=== PATIENT | male | born 1955 | race Caucasian/White ===

== ENCOUNTER 2023-12-18 16:18 | Inpatient (IN) | payer OTHER ==
[~2023-12-18] VITALS: Ht 152.4 cm; Wt 73.5 kg
[2023-12-18] MEDS: MORPHINE SULFATE 4 MG/ML INJ (FOR IV/IM USE) IV ONE (17:00)
[2023-12-18 19:05] LABS: BASOPHILS % 0.9 % (0.0-2.0); EOSINOPHILS % 3.4 % (0.0-5.0); HEMATOCRIT. 39.8 % (42.0-52.0); HEMOGLOBIN. 13.3 g/dL (14.0-18.0); LYMPHOCYTES % 19.8 % (20.0-50.0); MEAN CORPUSCULAR HEMOGLOBIN 30.9 pg (28.0-32.0); MEAN CORPUSCULAR HGB CONC 33.3 g/dL (31.0-37.0); MEAN CORPUSCULAR VOLUME 92.8 fL (80.0-94.0); MEAN PLATELET VOLUME 7.8 fl (7.4-10.4); NEUTROPHILS % 67.9 % (40.0-76.0); PLATELET 276 x1000/uL (130-400); RED BLOOD CELL COUNT 4.29 mill/uL (4.7-6.1); RED CELL DISTRIBUTION WIDTH 17.5 % (11.6-14.6); WHITE BLOOD COUNT 7.3 x1000/uL (4.5-11.0)
[2023-12-18 19:15] LABS: PROTHROMBIN TIME 11.1 sec (9.6-11.0)
[2023-12-18 19:20] LABS: ALANINE AMINOTRANSFERASE 9 IU/L (10-49); ALBUMIN 4.9 g/dL (3.2-4.8); ASPARTATE AMINOTRANSFERASE 14 IU/L (<34); BILIRUBIN TOTAL 0.4 mg/dL (0.1-1.0); CALCIUM 9.1 mg/dL (8.7-10.4); CARBON DIOXIDE 27 mEq/L (21-32); CHLORIDE 107 mEq/L (98-107); CREATININE 1.2 mg/dL (0.6-1.3); GLUCOSE 89 mg/dL (70-105); POTASSIUM 3.9 mEq/L (3.5-5.1); PROTEIN TOTAL 8.2 g/dL (6.0-8.3); SODIUM 140 mEq/L (136-145); UREA NITROGEN BLOOD 16 mg/dL (9-23)
[2023-12-18 19:22] LABS: TROPONIN I HIGH SENSITIVITY < 4 ng/L (3.0-53)
[2023-12-18] MEDS ORDERED: METRONIDAZOLE 500 MG PREMIX 100 ML IV NR (21:00)
[2023-12-18 21:47] LABS: TROPONIN I HIGH SENSITIVITY < 4 ng/L (3.0-53)
[2023-12-18] MEDS ORDERED: PIPERACILLIN/TAZO 3.375G/50ML 50 ML IV SCH (22:00)
[2023-12-18] MEDS ORDERED: NA PHOS,M-B/NA PHOS,DI-BA ENEMA 118ML PR PRN (23:00)
[2023-12-18] MEDS ORDERED: ACETAMINOPHEN 325MG TABLET PO PRN (23:00)
[2023-12-18] MEDS ORDERED: DOCUSATE SODIUM 100MG CAPSULE PO PRN (23:00)
[2023-12-18] MEDS ORDERED: MAGNESIUM/ALUMINUM HYDROXIDE/SIMETHICONE 30ML UDC PO PRN (23:00)
[2023-12-18] MEDS ORDERED: IPRATROPIUM/ALBUTEROL 0.5-3(2.5)MG/3ML NEB HHN PRN (23:00)
[2023-12-18] MEDS ORDERED: GUAIFENESIN 200MG/10ML SUGAR FREE UDC PO PRN (23:00)
[2023-12-18] MEDS ORDERED: DEXTROSE 50% WATER 50ML SYRINGE IV PRN (23:00)
[2023-12-18] MEDS: PIPERACILLIN/TAZO 3.375G/50ML 50 ML IV SCH (23:15)
[2023-12-19] MEDS: METRONIDAZOLE 500 MG PREMIX 100 ML IV NR (01:14)
[2023-12-19 05:10] LABS: BASOPHILS % 0.8 % (0.0-2.0); EOSINOPHILS % 4.5 % (0.0-5.0); HEMATOCRIT. 34.2 % (42.0-52.0); HEMOGLOBIN. 11.1 g/dL (14.0-18.0); LYMPHOCYTES % 23.9 % (20.0-50.0); MEAN CORPUSCULAR HEMOGLOBIN 30.5 pg (28.0-32.0); MEAN CORPUSCULAR HGB CONC 32.4 g/dL (31.0-37.0); MEAN CORPUSCULAR VOLUME 94.1 fL (80.0-94.0); MEAN PLATELET VOLUME 7.9 fl (7.4-10.4); MONOCYTES % 9.6 % (2.0-8.0); NEUTROPHILS % 61.2 % (40.0-76.0); PLATELET 247 x1000/uL (130-400); RED BLOOD CELL COUNT 3.63 mill/uL (4.7-6.1); RED CELL DISTRIBUTION WIDTH 17.2 % (11.6-14.6); WHITE BLOOD COUNT 5.8 x1000/uL (4.5-11.0)
[2023-12-19 05:30] LABS: ALANINE AMINOTRANSFERASE 8 IU/L (10-49); ALBUMIN 4.2 g/dL (3.2-4.8); ASPARTATE AMINOTRANSFERASE 12 IU/L (<34); BILIRUBIN TOTAL 0.7 mg/dL (0.1-1.0); CALCIUM 8.7 mg/dL (8.7-10.4); CARBON DIOXIDE 23 mEq/L (21-32); CHLORIDE 109 mEq/L (98-107); CHOLESTEROL 134 mg/dL (<200); CREATININE 1.1 mg/dL (0.6-1.3); GLUCOSE 91 mg/dL (70-105); HDL CHOLESTEROL 29 mg/dL (>55); LDL CHOLESTEROL 86 mg/dL (5-100); POTASSIUM 3.6 mEq/L (3.5-5.1); PROTEIN TOTAL 7.4 g/dL (6.0-8.3); SODIUM 140 mEq/L (136-145); TRIGLYCERIDE 122 mg/dL (0-150); UREA NITROGEN BLOOD 11 mg/dL (9-23)
[2023-12-19] MEDS: LORAZEPAM 0.5MG TABLET PO PRN (06:26)
[2023-12-19] MEDS: INSULIN LISPRO 100 UNITS/ML SUBCUT SCH (08:20)
[2023-12-19] MEDS: BLOOD SUGAR DIAGNOSTIC STRIP TEST SCH (09:00)
[2023-12-19] MEDS: FAMOTIDINE 20MG TABLET PO SCH (11:57)
[2023-12-19] MEDS: LOSARTAN 25 MG TABLET PO SCH (11:57)
[2023-12-19] MEDS: ENOXAPARIN 40MG/0.4ML SYR SUBCUT SCH (11:58)
[2023-12-19 12:00] VITALS: BP 148/92; PULSE 60; RESP 18; TEMP 97.4
[2023-12-19 12:05] VITALS: BP 139/92; PULSE 73; RESP 16; TEMP 97.8
[2023-12-19] MEDS ORDERED: DIATR MEGLU/DIATRIZOATE SOLN 30ML PO SCH (14:45)
[2023-12-19 16:00] VITALS: BP 141/99; PULSE 67; RESP 18; TEMP 97.8
[2023-12-19 16:11] LABS: HEMATOCRIT 38.9 % (42.0-52.0)
[2023-12-19 20:50] VITALS: BP 142/78; PULSE 80; RESP 20; TEMP 98
[2023-12-20] VITALS: BP 134/69; PULSE 64; RESP 18; TEMP 98
[2023-12-20 04:15] VITALS: BP 132/68; PULSE 62; RESP 16; TEMP 98.1
[2023-12-20 07:27] LABS: CALCIUM 8.7 mg/dL (8.7-10.4); CARBON DIOXIDE 25 mEq/L (21-32); CHLORIDE 109 mEq/L (98-107); CREATININE 1.3 mg/dL (0.6-1.3); GLUCOSE 86 mg/dL (70-105); PHOSPHORUS 2.5 mg/dL (2.5-4.9); POTASSIUM 3.7 mEq/L (3.5-5.1); SODIUM 138 mEq/L (136-145); UREA NITROGEN BLOOD 11 mg/dL (9-23)
[2023-12-20 08:00] VITALS: BP 140/94; PULSE 66; RESP 18; TEMP 97.9
[2023-12-20 08:21] LABS: BASOPHILS % 0.9 % (0.0-2.0); EOSINOPHILS % 4.1 % (0.0-5.0); HEMATOCRIT. 35.2 % (42.0-52.0); HEMOGLOBIN. 11.9 g/dL (14.0-18.0); LYMPHOCYTES % 19.3 % (20.0-50.0); MEAN CORPUSCULAR HEMOGLOBIN 30.9 pg (28.0-32.0); MEAN CORPUSCULAR HGB CONC 33.7 g/dL (31.0-37.0); MEAN CORPUSCULAR VOLUME 91.5 fL (80.0-94.0); MONOCYTES % 8.1 % (2.0-8.0); NEUTROPHILS % 67.6 % (40.0-76.0); PLATELET 247 x1000/uL (130-400); RED BLOOD CELL COUNT 3.84 mill/uL (4.7-6.1); RED CELL DISTRIBUTION WIDTH 17.3 % (11.6-14.6); WHITE BLOOD COUNT 5.4 x1000/uL (4.5-11.0)
[2023-12-20 12:00] VITALS: BP 145/89; PULSE 68; RESP 18; TEMP 97.4
[2023-12-20] MEDS ORDERED: IOHEXOL-300 100 ML BOTTLE ONE (14:42)
[2023-12-20] MEDS ORDERED: DIATR MEGLU/DIATRIZOATE SOLN 120ML ONE (14:43)
[2023-12-20 16:00] VITALS: BP 127/81; PULSE 75; RESP 18; TEMP 97
[2023-12-20 20:00] VITALS: BP 116/83; PULSE 86; RESP 18; TEMP 97.5
[2023-12-21] VITALS: BP 101/60; PULSE 76; RESP 18; TEMP 97.9
[2023-12-21 04:00] VITALS: BP 114/76; PULSE 76; RESP 20; TEMP 99
[2023-12-21 06:50] LABS: BASOPHILS % 0.9 % (0.0-2.0); EOSINOPHILS % 2.4 % (0.0-5.0); HEMATOCRIT. 34.1 % (42.0-52.0); HEMOGLOBIN. 11.7 g/dL (14.0-18.0); LYMPHOCYTES % 19.6 % (20.0-50.0); MEAN CORPUSCULAR HGB CONC 34.3 g/dL (31.0-37.0); MEAN CORPUSCULAR VOLUME 90.3 fL (80.0-94.0); MEAN PLATELET VOLUME 7.7 fl (7.4-10.4); MONOCYTES % 8.8 % (2.0-8.0); NEUTROPHILS % 68.3 % (40.0-76.0); PLATELET 250 x1000/uL (130-400); RED BLOOD CELL COUNT 3.78 mill/uL (4.7-6.1); RED CELL DISTRIBUTION WIDTH 17.1 % (11.6-14.6)
[2023-12-21 07:09] LABS: ALANINE AMINOTRANSFERASE < 7 IU/L (10-49); ALBUMIN 4.1 g/dL (3.2-4.8); ASPARTATE AMINOTRANSFERASE 10 IU/L (<34); BILIRUBIN TOTAL 0.4 mg/dL (0.1-1.0); CALCIUM 8.7 mg/dL (8.7-10.4); CARBON DIOXIDE 24 mEq/L (21-32); CHLORIDE 106 mEq/L (98-107); CREATININE 1.6 mg/dL (0.6-1.3); GLUCOSE 121 mg/dL (70-105); POTASSIUM 3.7 mEq/L (3.5-5.1); SODIUM 139 mEq/L (136-145); UREA NITROGEN BLOOD 17 mg/dL (9-23)
[2023-12-21 08:00] VITALS: BP 122/95; PULSE 75; RESP 17; TEMP 97.5
[2023-12-21] MEDS: FAMOTIDINE 20MG TABLET PO SCH (09:49)
[2023-12-21 12:00] VITALS: BP 127/84; PULSE 74; RESP 18; TEMP 97.1
[2023-12-21 16:00] VITALS: BP 130/74; PULSE 87; RESP 19; TEMP 97.4
[2023-12-21 20:00] VITALS: BP 126/77; PULSE 69; RESP 20; TEMP 98
[2023-12-21] MEDS: QUETIAPINE FUMARATE 25MG TABLET PO SCH (21:00)
[2023-12-22] VITALS: BP 116/71; PULSE 66; RESP 18; TEMP 97.7
[2023-12-22 04:00] VITALS: BP 108/61; PULSE 61; RESP 19; TEMP 97.8
[2023-12-22 07:17] LABS: CARBON DIOXIDE 26 mEq/L (21-32); CHLORIDE 108 mEq/L (98-107); CREATININE 1.4 mg/dL (0.6-1.3); GLUCOSE 91 mg/dL (70-105); PHOSPHORUS 2.5 mg/dL (2.5-4.9); POTASSIUM 3.9 mEq/L (3.5-5.1); SODIUM 139 mEq/L (136-145); UREA NITROGEN BLOOD 11 mg/dL (9-23)
[2023-12-22 08:00] VITALS: BP 154/90; PULSE 68; RESP 18; TEMP 97.5
[2023-12-22 12:00] VITALS: BP 146/96; PULSE 68; RESP 18; TEMP 97.1
[2023-12-22] MEDS: ACETAMINOPHEN 325MG TABLET PO PRN (12:33)
[2023-12-22 16:00] VITALS: BP 146/97; PULSE 64; RESP 18; TEMP 96.6
[2023-12-22 20:00] VITALS: BP 131/84; PULSE 70; RESP 19; TEMP 97.9
[2023-12-23] VITALS: BP 123/85; PULSE 55; RESP 18; TEMP 97.9
[2023-12-23 04:00] VITALS: BP 155/94; PULSE 56; RESP 19; TEMP 97.3
[2023-12-23 07:10] LABS: CALCIUM 8.7 mg/dL (8.7-10.4); CARBON DIOXIDE 25 mEq/L (21-32); CHLORIDE 107 mEq/L (98-107); CREATININE 1.2 mg/dL (0.6-1.3); GLUCOSE 90 mg/dL (70-105); PHOSPHORUS 2.9 mg/dL (2.5-4.9); SODIUM 140 mEq/L (136-145); UREA NITROGEN BLOOD 9 mg/dL (9-23)
[2023-12-23 08:00] VITALS: BP 149/85; PULSE 74; RESP 18; TEMP 97.1
[2023-12-23 12:00] VITALS: BP 142/95; PULSE 65; RESP 18; TEMP 97.2
[2023-12-23 16:00] VITALS: BP 162/104; PULSE 72; RESP 18; TEMP 97.5
[2023-12-23] MEDS: CLONIDINE 0.1MG TABLET PO PRN (16:51)
[2023-12-23 20:00] VITALS: BP 118/79; PULSE 90; RESP 18; TEMP 97.1
[2023-12-24 08:00] VITALS: BP 148/95; PULSE 62; RESP 20; TEMP 98.2
[2023-12-24 12:00] VITALS: BP 137/72; PULSE 64; RESP 20; TEMP 98.2
[2023-12-24 16:00] VITALS: BP 141/70; PULSE 69; RESP 21; TEMP 98.4
[2023-12-24 20:00] VITALS: BP 124/84; PULSE 71; RESP 18; TEMP 96.7
[2023-12-25] VITALS: BP 119/82; PULSE 68; RESP 18; TEMP 97.9
[2023-12-25 04:00] VITALS: BP 124/89; PULSE 78; RESP 18; TEMP 98.7
[2023-12-25 07:54] LABS: BASOPHILS % 0.6 % (0.0-2.0); EOSINOPHILS % 2.3 % (0.0-5.0); HEMATOCRIT. 38.1 % (42.0-52.0); HEMOGLOBIN. 12.7 g/dL (14.0-18.0); LYMPHOCYTES % 25.3 % (20.0-50.0); MEAN CORPUSCULAR HEMOGLOBIN 30.8 pg (28.0-32.0); MEAN CORPUSCULAR HGB CONC 33.3 g/dL (31.0-37.0); MEAN CORPUSCULAR VOLUME 92.4 fL (80.0-94.0); MEAN PLATELET VOLUME 7.5 fl (7.4-10.4); MONOCYTES % 6.8 % (2.0-8.0); PLATELET 213 x1000/uL (130-400); RED BLOOD CELL COUNT 4.13 mill/uL (4.7-6.1); RED CELL DISTRIBUTION WIDTH 17.3 % (11.6-14.6); WHITE BLOOD COUNT 6.9 x1000/uL (4.5-11.0)
[2023-12-25 08:00] VITALS: BP 127/65; PULSE 90; RESP 20; TEMP 97.2
[2023-12-25 08:47] LABS: CALCIUM 9.2 mg/dL (8.7-10.4); CREATININE 1.3 mg/dL (0.6-1.3); POTASSIUM 4.8 mEq/L (3.5-5.1)
[2023-12-25 12:00] VITALS: BP 130/70; PULSE 91; RESP 20; TEMP 98.2
[2023-12-25 16:00] VITALS: BP 128/70; PULSE 80; RESP 20; TEMP 98.2
[2023-12-25 20:00] VITALS: BP 121/89; PULSE 72; RESP 19; TEMP 97.6
[2023-12-26] VITALS: BP 118/90; PULSE 78; RESP 19; TEMP 98.7
[2023-12-26 04:00] VITALS: BP 122/88; PULSE 82; RESP 19; TEMP 97.7
[2023-12-26 08:00] VITALS: BP 126/73; PULSE 70; RESP 20; TEMP 97.2
[2023-12-26 12:00] VITALS: BP 143/97; PULSE 69; RESP 18; TEMP 96.8
[2023-12-26 16:00] VITALS: BP 115/85; PULSE 77; RESP 20; TEMP 97.8
[2023-12-26 20:00] VITALS: BP 110/70; PULSE 70; RESP 18; TEMP 98
[2023-12-27] VITALS: BP 105/72; PULSE 69; RESP 18; TEMP 98
[2023-12-27 04:00] VITALS: BP 124/83; PULSE 68; RESP 18; TEMP 98.2
[2023-12-27 08:00] VITALS: BP 133/83; PULSE 68; RESP 17; TEMP 97.5
[2023-12-27 12:00] VITALS: BP 129/90; PULSE 62; RESP 17; TEMP 97.3
[2023-12-27 16:00] VITALS: BP 111/84; PULSE 68; RESP 18; TEMP 98.1
[2023-12-27 20:00] VITALS: BP 122/80; PULSE 72; RESP 18; TEMP 98.2
[2023-12-27] MEDS ORDERED: CEFEPIME 2GM IN DEXT 5% 100ML IV SCH (22:45)
[2023-12-28] VITALS: BP 136/79; PULSE 83; RESP 16; TEMP 97.6
[2023-12-28 08:00] VITALS: BP 128/95; PULSE 79; RESP 18; TEMP 98
[2023-12-28] MEDS: METRONIDAZOLE 500 MG PREMIX 100 ML IV SCH (11:22)
[2023-12-28] MEDS: CEFEPIME 2GM/100ML 100 ML IV SCH (11:45)
[2023-12-28 12:00] VITALS: BP 130/74; PULSE 81; RESP 19; TEMP 97
[2023-12-28 16:00] VITALS: BP 137/77; PULSE 94; RESP 16; TEMP 98.1
[2023-12-28 20:00] VITALS: BP 119/62; PULSE 75; RESP 18; TEMP 97.5
[2023-12-29] VITALS: BP 125/66; PULSE 63; RESP 17; TEMP 98
[2023-12-29 04:00] VITALS: BP 93/51; PULSE 73; RESP 18; TEMP 99.3
[2023-12-29 07:06] LABS: CALCIUM 8.8 mg/dL (8.7-10.4); CARBON DIOXIDE 23 mEq/L (21-32); CHLORIDE 105 mEq/L (98-107); CREATININE 1.2 mg/dL (0.6-1.3); GLUCOSE 100 mg/dL (70-105); POTASSIUM 4.2 mEq/L (3.5-5.1); SODIUM 136 mEq/L (136-145); UREA NITROGEN BLOOD 22 mg/dL (9-23)
[2023-12-29 07:40] LABS: EOSINOPHILS % 1.8 % (0.0-5.0); HEMATOCRIT. 36.2 % (42.0-52.0); HEMOGLOBIN. 12.3 g/dL (14.0-18.0); LYMPHOCYTES % 23.1 % (20.0-50.0); MEAN CORPUSCULAR HEMOGLOBIN 30.7 pg (28.0-32.0); MEAN CORPUSCULAR HGB CONC 33.9 g/dL (31.0-37.0); MEAN CORPUSCULAR VOLUME 90.5 fL (80.0-94.0); MEAN PLATELET VOLUME 8.4 fl (7.4-10.4); MONOCYTES % 8.5 % (2.0-8.0); NEUTROPHILS % 65.6 % (40.0-76.0); PLATELET 201 x1000/uL (130-400); RED CELL DISTRIBUTION WIDTH 16.9 % (11.6-14.6); WHITE BLOOD COUNT 6.4 x1000/uL (4.5-11.0)
[2023-12-29 08:00] VITALS: BP 115/80; PULSE 82; RESP 17; TEMP 97.6
[2023-12-29 12:00] VITALS: BP 122/86; PULSE 80; RESP 18; TEMP 97.8
[2023-12-29 16:00] VITALS: BP 107/80; PULSE 74; RESP 18; TEMP 96.3
[2023-12-29 18:18] LABS: VITAMIN B12 SERUM 321 pg/mL (211-911)
[2023-12-29 20:00] VITALS: BP 134/88; PULSE 74; RESP 20; TEMP 97.9
[2023-12-30] VITALS (7 sets, daily range): BP systolic 90–136; BP diastolic 53–88; PULSE 68–80; RESP 18–20; TEMP 96.6–98.6; O2SAT 99
[2023-12-30] MEDS ORDERED: LOSA25TA26 PO (17:32)
[2023-12-30] MEDS ORDERED: GADOTERATE MEGLUMINE 5 MMOL/10 ML VIAL IV ONE (18:07)
[2023-12-31] VITALS: BP 113/73; PULSE 69; RESP 18; TEMP 98.1
[2023-12-31 00:02] LABS: T4 FREE 0.44 ng/dL (0.89-1.76); THYROID STIMULATING HORMONE 96.89 uIU/mL (0.55-4.78)
[2023-12-31 04:00] VITALS: BP 111/70; PULSE 69; RESP 18; TEMP 96.8
[2023-12-31 08:00] VITALS: BP 135/89; PULSE 80; RESP 20; TEMP 98.1
[2023-12-31] MEDS: LEVOTHYROXINE SODIUM 25MCG TABLET PO SCH (08:18)
[2023-12-31 12:00] VITALS: BP 133/93; PULSE 60; RESP 20; TEMP 97.2
[2023-12-31 16:00] VITALS: BP 129/92; PULSE 78; RESP 20; TEMP 97.4
[2023-12-31 20:00] VITALS: BP 116/80; PULSE 77; RESP 20; TEMP 96.8
[2024-01-01] VITALS: BP 94/59; PULSE 68; RESP 20; TEMP 97.5
[2024-01-01 04:00] VITALS: BP 112/71; PULSE 62; RESP 20; TEMP 96.6
[2024-01-01 08:00] VITALS: BP 126/78; PULSE 68; RESP 19; TEMP 98
[2024-01-01 12:00] VITALS: BP 157/82; PULSE 66; RESP 20; TEMP 98.2
[2024-01-01 16:00] VITALS: BP 140/98; PULSE 70; RESP 20; TEMP 97.1
[2024-01-01] MEDS ORDERED: HYDROXYZINE 25MG TABLET PO PRN (21:15)
[2024-01-02 08:00] VITALS: BP 125/90; PULSE 65; RESP 19; TEMP 96.7
[2024-01-02 13:39] VITALS: BP 128/78; PULSE 71; TEMP 96.7; O2SAT 99
[2024-01-02 20:00] VITALS: BP 129/93; PULSE 72; RESP 18; TEMP 96.7
[2024-01-03] VITALS: BP 118/98; PULSE 78; RESP 18; TEMP 96.6
[2024-01-03 04:00] VITALS: BP 122/94; PULSE 84; RESP 18; TEMP 97.7
[2024-01-03 08:00] VITALS: BP 123/89; PULSE 66; RESP 19; TEMP 97.3
[2024-01-03 12:00] VITALS: BP 109/71; PULSE 65; RESP 19; TEMP 97.5
[2024-01-03 14:27] VITALS: BP 109/77; PULSE 72; TEMP 97.2; O2SAT 99
[2024-01-03] MEDS ORDERED: LEVO25TA7 PO (14:47)
[2024-01-03] MEDS ORDERED: HYDR-3735 PO (14:47)
[2024-01-03 16:00] VITALS: BP 127/73; PULSE 67; RESP 19; TEMP 97.7
== END 2024-01-03 21:00 | disposition home or self-care (01) | DRG 391 ==
LOC: ER 16:18 → 7EST 20:44 → SUPCPDRO 20:45 → 6EST 12-23 15:22
PROVIDERS: ADMIT Internal Medicine; ATTEND Internal Medicine
PROC: 4A00X4Z Measurement of Central Nervous Electrical Activity, External Approach (ICD-10-PCS; principal; 2023-12-30)
DX: K57.20 Diverticulitis of large intestine with perforation and abscess without bleeding (principal); K65.1 Peritoneal abscess; C64.1 Malignant neoplasm of right kidney, except renal pelvis; C79.31 Secondary malignant neoplasm of brain; I10 Essential (primary) hypertension; G30.9 Alzheimer's disease, unspecified; E11.9 Type 2 diabetes mellitus without complications; D64.9 Anemia, unspecified; F02.80 Dementia in other diseases classified elsewhere, unspecified severity, without behavioral disturbance, psychotic disturbance, mood disturbance, and anxiety; Z88.2 Allergy status to sulfonamides; C61 Malignant neoplasm of prostate; Z79.899 Other long term (current) drug therapy; Z90.49 Acquired absence of other specified parts of digestive tract; Z90.5 Acquired absence of kidney
CPT/HCPCS: 36415; 70553; 71045; 74176; 74177; 80048; 80053; 80061; 82607; 82962; 83036; 83735; 84100; 84145; 84439; 84443; 84484; 85014; 85018; 85025; 85044; 86376; 86480; 95816; 97166; 99285; A9577; J0692; J1650; J1815; J2543; J3490; Q9963; Q9967